=== PATIENT | female | born 1960 | race Caucasian/White ===

== ENCOUNTER 2021-11-30 06:41 | Observation (INO) ==
--- NOTE | 2021-11-26 12:37 | Anesthesiology Consultation ---
Date of Service November 26, 2021 Assessment & Plan (1) Encounter for pre-operative examination: COVID screening: Per assessment on 11/26: No known COVID-19 positive contacts or current COVID-19 related symptoms. Travel screen negative. Surgeon arranging preop COVID testing. Awaiting results. Chart Review Chart Review: Acceptable Risk for Surgery and Patient NOT seen in Pre Admission Testing History Surgery Operation Date: 11/30/21 14:50 Proposed Procedures p Left Anterior Total Hip Replacement - Josiah Escobar DO Height/Weight Height: 5 ft 5 in Weight: 81.647 kg Allergies Allergy/AdvReac Type Severity Reaction Status Date / Time No Known Allergies Allergy Verified 11/26/21 11:46 Medications Home Medications Medication Instructions Recorded Confirmed Last Taken alprazolam 0.25 mg tablet (Xanax) 0.25 mg PO DAILY PRN 10/29/21 11/26/21 Unknown bupropion HCl 150 mg tablet,12 hr 150 mg PO QAM 10/29/21 11/26/21 Unknown sustained-release (Wellbutrin SR) Bone Restore Elite 4 cap PO DAILY 11/26/21 11/26/21 Unknown Buswella Extract 1 cap PO DAILY 11/26/21 11/26/21 Unknown Cosamine Asu Joint Health 3 cap PO DAILY 11/26/21 11/26/21 Unknown Inflammed/X 2 cap PO BID 11/26/21 11/26/21 Unknown Moranga 2 cap PO DAILY 11/26/21 11/26/21 Unknown Omax 3 [place] Supplement 1 cap PO DAILY 11/26/21 11/26/21 Unknown White [place] Bark 2 cap PO DAILY 11/26/21 11/26/21 Unknown ascorbic acid (vitamin C) 1,000 mg 3 g PO DAILY 11/26/21 11/26/21 Unknown tablet (Vitamin C) cat's claw (uncaria tomentosa) 2,000 mg PO DAILY 11/26/21 11/26/21 Unknown 1,000 mg capsule cholecalciferol (vitamin D3) 125 250 mcg PO DAILY 11/26/21 11/26/21 Unknown mcg (5,000 unit) tablet (Vitamin D3) ginkgo biloba 120 mg tablet 120 mg PO DAILY 11/26/21 11/26/21 Unknown turmeric 400 mg capsule 400 mg PO TID 11/26/21 11/26/21 Unknown zinc 22 mg tablet 22 mg PO DAILY 11/26/21 11/26/21 Unknown Past Medical History Medical History Depression History of COVID-12 JUNE 2021>SORE THROAT/FATIGUE > *RESOLVED Nerve damage of left foot Osteoarthritis Past Family History Family History Other No family history of adverse response to anesthesia Past Surgical History Surgical History H/O sinus surgery History of appendectomy History of tooth extraction Hx of chest tube placement COLLAPSED LUNG>2012 Social History Smoking Status: Never smoker Hx Alcohol Use: Yes Alcohol type: wine alcohol intake frequency: a few times a month Hx Substance Use: No Lab Results Anesthesia Preop Results Results Anesthesia Widget: WBC 6.76 K/uL (4.8-10.8) 11/19/21 Hgb 13.8 g/dL (12.0-16.0) 11/19/21 Hct 41.1 % (37-47) 11/19/21 Plt 225 K/uL (130-400) 11/19/21 Na 138 mmol/L (136-145) 11/19/21 K 4.0 mmol/L (3.5-5.1) 11/19/21 Cl 105 mmol/L (98-107) 11/19/21 CO2 24 mmol/L (21-32) 11/19/21 BUN 19 mg/dl (6-23) 11/19/21 Creat 0.88 mg/dl (0.6-1.2) 11/19/21 Glucose Level 101 mg/dl (70-99(Fasting)) H 11/19/21 PT 10.0 Seconds (9.0-12.0) 11/19/21 PTT 23.7 Seconds (21.0-31.0) 11/19/21 INR 0.9 (0.9-1.1) 11/19/21 Blood Type A Positive 11/19/21 Antibody Screen NEGATIVE 11/19/21 Testing Electrocardiogram Date: 11/19/21 Findings: + NSR @ (76) Chest X-Ray Date: 11/19/21 Findings: + NAD
--- NOTE | 2021-11-29 16:17 | History & Physical Report ---
Date of Service November 29, 2021 Assessment & Plan (1) Osteoarthritis of left hip: We will proceed with a left anterior total arthroplasty. Postoperatively she will be started on aspirin for DVT prophylaxis and kept overnight in the hospital for postoperative medical management. She plans to have the hospital set up home health upon discharge. History of Present Illness Chief Complaint: Osteoarthritis of the left hip. Primary Care Provider: NO PCP Vicky is a pleasant 61-year-old female who is been dealing with chronic worsening left hip and groin pain. Is been going on for several years but is much more debilitated now. She has trouble ambulating. X-rays and clinical examination have been diagnostic for advanced arthritis of the left hip. After failing years of conservative treatment, she has elected to proceed with a left anterior total hip arthroplasty. Allergies Allergy/AdvReac Type Severity Reaction Status Date / Time No Known Allergies Allergy Verified 11/26/21 11:46 Home Medications Medication Instructions Recorded Confirmed Type alprazolam 0.25 mg tablet (Xanax) 0.25 mg PO DAILY PRN 10/29/21 11/26/21 History bupropion HCl 150 mg tablet,12 hr 150 mg PO QAM 10/29/21 11/26/21 History sustained-release (Wellbutrin SR) Bone Restore Elite 4 cap PO DAILY 11/26/21 11/26/21 History Buswella Extract 1 cap PO DAILY 11/26/21 11/26/21 History Cosamine Asu Joint Health 3 cap PO DAILY 11/26/21 11/26/21 History Inflammed/X 2 cap PO BID 11/26/21 11/26/21 History Moranga 2 cap PO DAILY 11/26/21 11/26/21 History Omax 3 [place] Supplement 1 cap PO DAILY 11/26/21 11/26/21 History White [place] Bark 2 cap PO DAILY 11/26/21 11/26/21 History ascorbic acid (vitamin C) 1,000 mg 3 g PO DAILY 11/26/21 11/26/21 History tablet (Vitamin C) cat's claw (uncaria tomentosa) 2,000 mg PO DAILY 11/26/21 11/26/21 History 1,000 mg capsule cholecalciferol (vitamin D3) 125 250 mcg PO DAILY 11/26/21 11/26/21 History mcg (5,000 unit) tablet (Vitamin D3) ginkgo biloba 120 mg tablet 120 mg PO DAILY 11/26/21 11/26/21 History turmeric 400 mg capsule 400 mg PO TID 11/26/21 11/26/21 History zinc 22 mg tablet 22 mg PO DAILY 11/26/21 11/26/21 History celecoxib 200 mg capsule (Celebrex) 200 mg PO BID #28 cap 11/28/21 Rx oxycodone-acetaminophen 5 mg-325 1 tab PO Q6H PRN #30 tab 11/28/21 Rx mg tablet (Percocet) Past Med/Surg History Medical History Depression History of COVID-12 JUNE 2021>SORE THROAT/FATIGUE > *RESOLVED Nerve damage of left foot Osteoarthritis Surgical History H/O sinus surgery History of appendectomy History of tooth extraction Hx of chest tube placement COLLAPSED LUNG>2012 Family History Other No family history of adverse response to anesthesia Social History Smoking Status: Never smoker Second Hand Exposure: No; Hx Alcohol Use: Yes Alcohol type: wine Hx Substance Use: No Preferred Language: Indonesian Machine Crater Required: No Beliefs That Will Affect Care: None Current Living Situation: Alone Feels Safe at Home: Yes Assistive Devices: Crutches and Glasses Review of Systems All systems reviewed & are unremarkable except as noted in HPI & below. Physical Exam On physical examination of the left hip, she has about 20 degrees of external rotation 10 degrees of internal rotation. She has severe pain at end ranges of motion. All of her pain is located in her groin. Constitutional WD/WN, vitals as above Eyes PERRL, conjunctivae normal, anicteric sclerae ENMT external ear and nose normal, oropharynx normal Neck trachea midline, no thyromegaly Respiratory normal respiratory effort Cardiovascular RRR, no murmur, no edema Gastrointestinal (Abdomen) normal bowel sounds, soft, nontender, no hepatosplenomegaly Psychiatric A+Ox3, euthymic affect Results & Data Results & Data Laboratory Results . Diagnostic Findings X-rays of the left hip show advanced osteoarthritis with joint space narrowing, osteophyte formation, and [id number] articulation. PG Care Time/CCT Total # of Minutes Spent Total Time Spent with Patient: Total time spent is greater than 50% in coordination of care (as documented) at patient's floor/unit and/or counseling patient: Coding Level of Care Code None Diagnoses Osteoarthritis of left hip M16.12
[~2021-11-30 06:41] MED LIST: ACETAMINOPHEN 500 MG TAB PO SCH; BUPIVACAINE 0.5 % 5 MG/1 ML PF 10ML VIAL ONE; FAMOTIDINE 20 MG TAB PO SCH; GABAPENTIN 600 MG DOSE PO SCH; Ketorolac (*for OR use only*) 30 MG, dexAMETHasone 4 MG, KETAMINE HCL (**OR use only) 1... INFIL SCH; LR 500ML BOLUS, THEN 15ML/HR IV SCH; LR 60ML/HR IV SCH; TRANEXAMIC ACID 1,000 MG **IV Intra-op IV SCH; TRANEXAMIC ACID 1,000 MG **IV Pre-op IV SCH; ceFAZolin 2000MG 2,000 MG/15 ML SYR IV SCH; dexAMETHasone 4 MG TAB PO SCH
[2021-11-30] MEDS ORDERED: MIDAZOLAM HCL 1 MG/ML 2ML VIAL ONE ×2 (07:34→07:40)
[2021-11-30] MEDS ORDERED: ONDANSETRON INJ 2 MG/ML 2 ML VIAL ONE (07:34)
[2021-11-30] MEDS ORDERED: fentaNYL citrate 100 MCG/2 ML VIAL ONE (07:34)
[2021-11-30] MEDS ORDERED: LIDOCAINE 2% 2 ML VIAL/AMP(20MG/ML) INFIL ONE (07:34)
[2021-11-30] MEDS ORDERED: PROPOFOL IV EMULSION 10 MG/ML 20 ML VIAL IV ONE (07:34)
--- NOTE | 2021-11-30 08:23 | History & Physical Bridge Note ---
Date of Service November 30, 2021 History & Physical Bridge Note I have examined the patient, reviewed the History & Physical and in the interval since the performance of the History & Physical I have noted the following changes of clinical significance: no changes noted
[2021-11-30] MEDS ORDERED: fentaNYL citrate 100 MCG/2 ML VIAL IV PRN (08:52)
[2021-11-30] MEDS ORDERED: ONDANSETRON INJ 2 MG/ML 2 ML VIAL IV PRN ×2 (08:52→12:31)
[2021-11-30] MEDS ORDERED: ATROPINE SULFATE 0.1 MG/ML 10ML SYR IV PRN (08:52)
[2021-11-30] MEDS ORDERED: ePHEDrine sulfate 50 MG/ML AMP IV PRN (08:52)
[2021-11-30] MEDS ORDERED: ORTHO JOINT ANESTHETIC ONE (08:53)
[2021-11-30] MEDS ORDERED: DEXAMETHASONE SOD INJ 4 MG/ML VIAL ONE (09:39)
[2021-11-30] MEDS ORDERED: GLYCOPYRROLATE 0.2 MG/ML VIAL ONE (09:43)
--- NOTE | 2021-11-30 10:29 | Operative Report ---
PG Post Operative Report Pre & Post Diagnosis Operation Date: 11/30/21 09:00 Pre-Op Diagnosis: Left Hip Osteoarthritis Post-Op Diagnosis: Left Hip Osteoarthritis I identified the patient and participated in the time-out.: Yes Procedure Operation Date: 11/30/21 09:00 Actual Procedures p Left Anterior Total Hip Arthroplasty, Uncemented(Left) - Josiah Escobar DO Surgeon Josiah Escobar DO Senior Hris Analyst Josiah Carranza PAC Estimated Blood Loss 250 Findings Consistent with Post-Op Diagnosis Specimens Left femoral head Complications none Disposition Disposition: Recovery Room Indications Vicky is a pleasant 61-year-old female who is been dealing with chronic wors ening left hip and groin pain. X-rays and clinical examination were diagnostic for osteoarthritis of left hip. After failing conservative treatment, she elected proceed with a left anterior total hip arthroplasty. Description of Procedure Implants used I used a ZimmerBiomet total hip arthroplasty system with a size 3 standard offset Avenir Complete stem, a 50 mm G7 cup with a 25mm screw, an E1 polyethylene liner, a 36 mm ceramic head with a +3.5 neck. Vicky arrived at the hospital for the above procedure. She was seen in the preoperative holding area and the operative extremity was identified and signed. She was given a spinal anesthetic, a preoperative antibiotic, and TXA. She was then taken back to the operating room and laid on the table in the supine position. She was given basic sedation. The operative leg was secured to a Puristst leg positioner. The hip was then prepped and draped in sterile fashion. A timeout was done and the patient and the operative extremity was properly identified. An anterior approach was used. Dissection was taken down through the fascia and the tensor muscle belly was retracted laterally and the rectus was retracted medially. The circumflex vessels were identified and ligated. The capsule was then incised and tagged for later repair. The femoral neck was then cut and the femoral head was removed. The acetabulum was exposed. Time was spent doing a complete circumferential labral release. Sequential reaming of the acetabulum up to a size 49 reamer was done. Final reamings were done under fluoroscopy to ensure appropriate version. A Biomet 50mm G7 cup was then impacted into place. A single 25 mm screw was placed. The E1 polyethylene liner was then snapped in to place. Surrounding soft tissues were then injected with 100 cc of an orthopedic pain control cocktail. The proximal femur was then exposed. Sequential broaching up to a size 3 broach was done. Off that broach a size 36 head with a +3.5 neck was trialed. The hip was reduced and fluoroscopic images showed anatomic alignment of the implants in acceptable length. The broach was removed. The final size 3 standard offset Avenir Complete stem was then impacted into place. A ceramic 36mm head with a +3.5 neck was then impacted onto the stem and the hip was reduced. Final fluoroscopic images showed anatomic alignment of the hip. The capsule was then closed with #1 Vicryl suture. A dilute betadyne lavage was then done for 3 minutes. The joint was then irrigated with normal saline solution. The fascia was closed with #1 PDS suture. Skin was closed with 2-0 Vicryl, annemarie, and a Silverlon dressing. She was then transferred to a hospital bed and taken to the post anesthesia care unit in stable condition. She tolerated the procedure well. Josiah Craranza PA-C, was present for the entire procedure. He was critical for patient positioning, prepping, draping, retraction exposure, wound closure and application of sterile dressing. I attest to the content of the Intraoperative Record and any orders documented therein. Any exceptions are noted below.
--- NOTE | 2021-11-30 11:35 | Fluoroscopy Report ---
FL hip LT 1V CLINICAL HISTORY: Left total hip arthroplasty. COMPARISON STUDY: None. FLUOROSCOPY TIME: 21 seconds. FINDINGS: 2 fluoroscopic spot images of the left hip demonstrate a left total hip arthroplasty. The h ardware appears intact. No fracture or dislocation. IMPRESSION: Fluoroscopic assistance provided for left total hip arthroplasty. ACT 112: Negative or not required by law. Electronically signed by: Dickson Ferreira M.D. 11/30/2021 11:34 AM
[2021-11-30] MEDS: SODIUM CHLORIDE 0.9% 1000ML 1,000 ML IV SCH ×2 (12:30→21:39)
[2021-11-30] MEDS ORDERED: MAGNESIUM HYDROXIDE SUSP 30 ML UDC PO PRN (12:31)
[2021-11-30] MEDS ORDERED: bisacodyL 10 MG SUPP PR PRN (12:31)
[2021-11-30] MEDS ORDERED: oxyCODONE HCL IR 5 MG TAB (IMMEDIATE RELEASE) PO PRN (12:31)
[2021-11-30] MEDS ORDERED: METOCLOPRAMIDE HCL INJ 5 MG/ML 2 ML VIAL IV PRN (12:31)
[2021-11-30] MEDS ORDERED: HYDROmorphone INJ 0.5 MG/0.5 ML SYR IV PRN (12:31)
[2021-11-30] MEDS ORDERED: ALPRAZolam 0.25 MG TABLET PO PRN (12:31)
[2021-11-30] MEDS ORDERED: NALOXONE HCL 0.4 MG/1 ML VIAL/CARP IV PRN (12:31)
--- NOTE | 2021-11-30 12:37 | XRay Report ---
XR hip 1V LT w pelvis CLINICAL HISTORY: Postoperative evaluation. COMPARISON: Pelvis and hip radiographs November 19, 2021. FINDINGS: Alignment of the total left hip arthroplasty is anatomic. There is no periprosthetic fract ure or unexpected radiopaque foreign body. There are skin annemarie. Acetabular screw is present. IMPRESSION: Expected findings following total left hip arthroplasty. ACT 112: Negative or not required by law. Electronically signed by: Rolando Blanco M.D. 11/30/2021 12:35 PM
--- NOTE | 2021-11-30 12:43 | Anesthesiology Progress Note ---
Date of Service November 30, 2021 Anesthesia Post Procedure Vital Signs Vital Signs: Temp Pulse Pulse Resp BP Pulse Ox 11/30/21 12:15 97.3 F L 72 12 142/80 H 97 11/30/21 12:05 72 14 128/83 97 11/30/21 11:55 72 18 146/92 H 99 11/30/21 11:45 74 14 149/100 H 97 11/30/21 11:35 71 14 145/96 H 96 11/30/21 11:25 79 14 156/99 H 97 11/30/21 11:15 85 12 126/60 97 11/30/21 11:05 90 16 132/88 96 11/30/21 10:55 92 H 22 120/78 100 11/30/21 10:49 97.0 F L 89 16 107/73 97 11/30/21 07:00 98.4 F 78 20 142/91 H 98 Transfer of Care Handoff Completed per policy Notes Mental Status: alert / awake / arousable and participated in evaluation Patient Amnestic to Procedure: Yes Nausea / Vomiting: adequately controlled Pain: adequately controlled Airway Patency, RR, SpO2: stable & adequate BP & HR: stable & adequate Hydration State: stable & adequate Neuraxial Anesthesia: was administered and sensory block is resolving Anesthetic Complications: no major complications apparent and Pt Satisfied with anesthetic care
[2021-11-30] MEDS: KETOROLAC 30 MG/ML VIAL IV SCH ×2 (13:25→20:55)
[2021-11-30] MEDS: ACETAMINOPHEN 500 MG TAB PO SCH ×2 (13:25→21:32)
[2021-11-30] MEDS: ceFAZolin 2000MG 2,000 MG/15 ML SYR IV SCH (17:17)
[2021-11-30] MEDS ORDERED: SENNA 8.6 MG TAB PO SCH (21:00)
[2021-11-30] MEDS: ASPIRIN 81 MG ECTAB PO SCH (21:31)
[2021-11-30] MEDS: DOCUSATE SODIUM 100 MG CAP PO SCH (21:32)
[2021-12-01] MEDS: KETOROLAC 30 MG/ML VIAL IV SCH ×2 (02:48→07:34)
[2021-12-01] MEDS: ceFAZolin 2000MG 2,000 MG/15 ML SYR IV SCH (02:49)
[2021-12-01] MEDS: ACETAMINOPHEN 500 MG TAB PO SCH (06:01)
[2021-12-01] MEDS ORDERED: dexAMETHasone 4 MG TAB PO SCH (08:00)
[2021-12-01 08:14] VITALS: BP 95/62; PULSE 70; TEMP 98.4; O2SAT 94
--- NOTE | 2021-12-01 08:42 | Orthopedic Progress Note ---
Date of Service December 01, 2021 Assessment & Plan (1) Status post left hip replacement: Overall she is doing fairly well. She is 89 much pain in the left hip. She will be seen by physical therapy today for ambulation and range of motion exercises. She is on aspirin for DVT prophylaxis. She can be discharged home later today. She will follow with orthopedics in 2 weeks. Barb Perry was seen and examined at bedside this morning. Overall she is doing very well. She is having much pain in the left hip. She has been up and ambulating to the bathroom. She has no complaints. Review of Systems All systems reviewed & are unremarkable except as noted in HPI & below. Physical Exam On physical examination of the left hip, the dressing is clean and dry. Her leg is out full extension. She has active dorsiflexion plantarflexion of her left ankle.. Results & Data Results & Data Laboratory Results . Diagnostic Findings Postoperative x-rays of the left hip shows the prosthesis to be in anatomic alignment without any evidence of fracture, desiccation, or loosening PG Care Time/CCT Total # of Minutes Spent Total Time Spent with Patient: Total time spent is greater than 50% in coordination of care (as documented) at patient's floor/unit and/or counseling patient: Coding Level of Care Code 60971 Post Operative Follow-Up Diagnoses Status post left hip replacement Z96.642
--- NOTE | 2021-12-01 08:43 | Discharge Summary ---
Date of Service December 01, 2021 Admission HPI (Per Admitting) Vicky is a pleasant 61-year-old female who is been dealing with chronic worsening left hip and groin pain. Is been going on for several years but is much more debilitated now. She has trouble ambulating. X-rays and clinical examination have been diagnostic for advanced arthritis of the left hip. After failing years of conservative treatment, she has elected to proceed with a left anterior total hip arthroplasty. Admission Exam (Per Admitting) On physical examination of the left hip, she has about 20 degrees of external rotation 10 degrees of internal rotation. She has severe pain at end ranges of motion. All of her pain is located in her groin. Principal Diagnosis Same as "Discharge Diagnosis" noted below under Discharge Instructions. Discharge Exam On physical examination of the left hip, the dressing is clean and dry. Her leg is out full extension. She has active dorsiflexion plantarflexion of her left ankle.. Discharge Data Procedures Performed Operation Date: 11/30/21 09:00 Actual Procedures p Left Anterior Total Hip Arthroplasty, Uncemented(Left) - Josiah Escobar DO Ordered Studies 11/30/21 09:00 FL hip LT 1V Routine Hospital Course (1) Status post left hip replacement: On November 30, 2021 Vicky arrived at [facility] and underwent a left hip replacement without complication. She had a spinal anesthetic. Postoperatively she was started on aspirin for DVT prophylaxis and transferred to the general orthopedic floors. Her hospital course was uneventful. On postop day #1 her vital signs were stable and her pain was well controlled. She was able to participate well with physical therapy doing ambulation and range of motion exercises. She can be discharged home later today. She will follow-up with orthopedics in 2 weeks. PG Care Time/CCT Total # of Minutes Spent Total Time Spent with Patient: Total time spent is greater than 50% in coordination of care (as documented) at patient's floor/unit and/or counseling patient: Discharge Plan Discharge Items Patient Disposition: Home - Home Health Services Reason For Visit: Left Hip Osteoarthritis Discharge Diagnosis: Left hip replacement Activity: Resume your previous activity Non-emergency contact: Surgeon Call non-emergency contact if: your wound has increased redness and your wound has increased drainage Follow-up/Referrals: PCP,NO [Primary Care Provider] - Diet: Regular Addtl Attending Provider Instructions: Activity and Therapy Recommendations: * If you are using [facility] then therapy will be provided at your home until they feel you have accomplished all of your goals. * If you are using [facility] then Physical Therapy will be provided until they feel you are ready to start Outpatient Physical Therapy. * If you are not using home therapy then Outpatient Physical Therapy should start about 3-5 days from your day of surgery. Therapy will last about 6-10 weeks * You were shown a series of exercises in the hospital. Do these exercises three times each day including the exercises you were shown in physical therapy. * Get up and walk several times each day.~ For the first four weeks, try not to stand or walk for more than one hour at a time. If you do stand or walk for more than one hour, you will not hurt anything, but your leg will likely swell.~~ * As you feel comfortable, you may change from the walker or crutches to a cane and~then to independent walking. Medications: * Narcotic You will likely be sent home from the hospital with a prescription for the narcotic pain medication that worked best throughout your stay. * Aspirin Most patients will be required to take Aspirin 81mg twice a day for 6 weeks after surgery. This is obtained [id number] and a prescription is not necessary. * Other medications may be prescribed for specific circumstances. If you have any questions, please call the office at . * Resume previous home medications unless otherwise instructed TEDs/Elastic Stockings: The white elastic stockings help limit swelling and prevent blood clots from for stanley in your legs. The more you wear them, the more they work. Wear them for six weeks. Dressing Care: Leave the Silverlon dressing in place for 7 days. After 7 days you may remove the dressing. If the incision is not draining then you may leave the annemarie open to air. If there is a little bit of drainage or if the annemarie are getting stuck on your clothing then cover the incision with a dry dressing. The annemarie will be removed at your 2 week follow-up appointment. Showering: You may shower with the Silverlon dressing in place. Do not let the shower spray hit the dressing directly. Pat the Silverlon dressing dry. If the dressing becomes wet underneath, then simply remove the dressing. Keep the incision dry until you are 7 days out from the day of surgery. After 7 days you may remove the Silverlon dressing and shower with the annemarie exposed. Let soapy water run over the annemarie and pat them dry. Do not scrub or soak the incision. Things To Watch For: * Drainage from the incision site that occurs more than one week after your surgery. * Increased redness at the incision site. * Fever above 102 degrees Fahrenheit. * Unusual chest pain or shortness of breath. * Call [facility] at with any of the above problems Follow-Up Visit: Follow-up with Dr. Escobar's PA (Josiah Carranza) 2-3 weeks after your day of surgery. He will remove your annemarie and answer any questions. If you have any additional questions or concerns, Dr Escobar is usually in the office at the same time and will be available An appointment was probably scheduled when you signed-up for surgery in the office. If you have any questions call Office Instructions: More detailed instructions as well as Frequently Asked Questions were provided in a folder by our office when you signed-up for surgery. Please review these instructions when you get home. If you have any further questions or concerns, please feel free to call the office at [phone] Pending Studies at Discharge: No Stand-Alone Forms: My [facility] Medications and DC Order Prescriptions: New aspirin 81 mg Tablet,Delayed Release (Dr/Ec) 81 mg PO BID 42 Days Qty: 84 RF: 0 Continued oxycodone-acetaminophen [Percocet] 5-325 mg tablet 1 tab PO Q6H PRN (Reason: pain) Qty: 30 RF: 0 celecoxib [Celebrex] 200 mg capsule 200 mg PO BID Qty: 28 RF: 0 bupropion HCl [Wellbutrin SR] 150 mg tablet sustained-release 12 hr 150 mg PO QAM RF: 0 alprazolam [Xanax] 0.25 mg tablet 0.25 mg PO DAILY PRN (Reason: Anxiety) RF: 0 ascorbic acid (vitamin C) [Vitamin C] 1,000 mg Tablet 3 g PO DAILY RF: 0 cat's claw (uncaria tomentosa) 1,000 mg Capsule 2,000 mg PO DAILY RF: 0 zinc 22 mg Tablet 22 mg PO DAILY RF: 0 ginkgo biloba 120 mg Tablet 120 mg PO DAILY RF: 0 cholecalciferol (vitamin D3) [Vitamin D3] 125 mcg (5,000 unit) Tablet 250 mcg PO DAILY RF: 0 turmeric 400 mg Capsule 400 mg PO TID RF: 0 Bone Restore Elite 4 cap PO DAILY RF: 0 Buswella Extract 1 cap PO DAILY RF: 0 Cosamine Asu Joint Health 3 cap PO DAILY RF: 0 Inflammed/X 2 cap PO BID RF: 0 [place] 2 cap PO DAILY RF: 0 Omax 3 [place] Supplement 1 cap PO DAILY RF: 0 White [place] Bark 2 cap PO DAILY RF: 0 Discharge Orders: Discharge Order (Routine); Ordered 12/01/21 Ordered By: Josiah Escobar Admission Data Admit Date/Time: 11/30/21 10:52 Attending Provider: Josiah Escobar Admit Provider: Josiah Escobar Primary Care Provider: [id number]
[2021-12-01] MEDS: ASPIRIN 81 MG ECTAB PO SCH (08:53)
[2021-12-01] MEDS: DOCUSATE SODIUM 100 MG CAP PO SCH (08:53)
[2021-12-01] MEDS ORDERED: CHOLECALCIFEROL 5,000 UNITS 125 MCG TAB PO SCH (09:00)
[2021-12-01] MEDS ORDERED: MULTIVITAMIN TAB PO SCH (09:00)
[2021-12-01] MEDS ORDERED: buPROPion SR 150 MG TABCR PO SCH (09:00)
== END 2021-12-01 12:01 | disposition home health service (06) ==
LOC: ASU 06:41 → 3E 06:41